=== PATIENT | female | born 2000 | race Caucasian/White ===

== ENCOUNTER 2023-06-30 12:26 | Emergency (ER) | payer OTHER, SELFPAY ==
[2023-06-30 12:28] VITALS: BP 147/93
[2023-06-30] MEDS: PROTONIX IV 80 MG IV (14:45)
--- NOTE | 2023-06-30 14:56 | ED.GENMED ---
History of Present Illness
General
Chief Complaint: Vomiting Blood
Time Seen by Provider: 06/30/23 14:21
Travel History
Have you had any contact with someone who has COVID-19?: No
Do you have any symptoms of coronavirus? Fever > 100 degrees, chills, cough, shortness of breath, sore throat, loss of taste or smell, muscle aches, or headache?: No
History of Present Illness
History of Present Illness:
23-year-old female with history of bipolar disorder presents to the emergency department for evaluation of 3 episodes of blood-tinged vomitus over the past week. She also noted darker than normal stools this morning. Denies any melanotic stools.
Does report upper abdominal pain. Does not take NSAIDs routinely but does use tobacco products, denies alcohol use.
Past History
Past History
ED Past Medical History: Psychiatric
Review of Systems
Review of Systems
Allergies reviewed?: Yes
All Other Systems: ROS reviewed and negative except as documented in HPI and ROS
Phy Exam
Physical Exam
Physical Exam:
GEN: Well appearing, NAD, WDWN
Eyes: PERRLA, EOMs intact, no scleral icterus
HENT: NCAT, oral mucosa moist
Lungs: CTAB, no wheezes, rales, rhonchi, normal chest wall excursion
Cardiac: RRR, no M/R/G, no peripheral edema. Radial pulses 2+ bilat
Abdomen: S, NT, ND, NABS, no masses or hepatosplenomegaly
Rectum: Minimal stool in the rectal vault, heme-negative
Neuro: AO x 3
MSK: No gross deformity or ecchymosis.
Skin: No rashes, petechiae. Normal color, no pallor or jaundice.
Psych: Calm, cooperative, proper hygiene
Course
Orders/Labs/Results
Orders:
Orders
06/30/23 14:32
Pantoprazole [Protonix IV] 80 mg IV NOW STA
06/30/23 14:47
Complete Blood Count/With Diff Urgent
Comprehensive Metabolic Panel Urgent
Prothrombin Time Urgent
Abnormal Lab Results
06/30/23
14:47
Plt Count 428 H 10^3/uL
(130-400)
Absolute Monos (auto) 0.8 H 10^3/uL
(0.1-0.6)
Chloride 108 H mmol/L
(98-107)
06/30/23 14:47
06/30/23 14:47
Vital Signs
Initial and Last Documented VS:
Initial Vital Signs
Temp Pulse Resp BP Pulse Ox
98.1 F 87 16 147/93 99
06/30/23 12:28 06/30/23 12:28 06/30/23 12:28 06/30/23 12:28 06/30/23 12:28
Last Documented Vital Signs
Temp Pulse Resp BP Pulse Ox
98.1 F 87 16 147/93 99
06/30/23 12:28 06/30/23 12:28 06/30/23 12:28 06/30/23 12:28 06/30/23 12:28
MDM/Problems Addressed
MDM/Problems Addressed:
Patient does not have strongly melanotic stool. Her presentation is most consistent with acute gastritis/peptic ulcer disease. Her hemoglobin is stable and her vital signs are unremarkable. Patient was given IV Protonix in the emergency
department will discharge on high-dose Protonix with Carafate, outpatient GI follow-up advised. ED return parameters to include worsening hematemesis or melanotic stools discussed with the patient
*Critical Care Note
Total Time (30-74mins, 75-104mins- exclusive of procedures): Not Applicable
ED Attending Note
-
Portions of this chart may have been created with voice recognition software.� Occasional wrong word or��sound alike� substitutions may have occurred due to the inherent limitations of voice recognition software.
Discharge Plan
Departure
Patient Disposition: Home (Routine Discharge)
Date of Disposition: 06/30/23
Time of Disposition: 15:40
Patient with high blood pressure during this ER visit?: No
Discharge Problem:
Gastritis
Instructions: Gastritis (DC)
Prescriptions:
New
pantoprazole [Protonix] 40 mg tablet,delayed release (DR/EC)
40 mg PO BID 14 Days Qty: 28 0RF
sucralfate [Carafate] 1 gram tablet
1 g PO ACHS Qty: 60 0RF
No Action
omeprazole 10 mg Capsule,Delayed Release(Dr/Ec)
5 mg PO DAILY
benztropine [Cogentin] 1 mg Tablet
1 mg PO HS
topiramate [Topamax] 100 mg Tablet
100 mg PO HS
escitalopram oxalate [Lexapro] 10 mg Tablet
10 mg PO HS
aripiprazole [Abilify] 30 mg Tablet
30 mg PO HS
diclofenac sodium 75 mg tablet,delayed release (DR/EC)
75 mg PO BID Qty: 10 0RF
cyclobenzaprine 5 mg tablet
5 mg PO BID PRN (Reason: muscle spasm) Qty: 10 0RF
Referrals:
Zahida Fields MD [Active] - Call in 1-3 days for appt
Interventions
Interventions:
*Risk Screen - Suicide Last Done: 06/30/23 12:28
*General Assessment Last Done: 06/30/23 12:28
*Neglect/Abuse Screening Last Done: 06/30/23 12:28
ED- Fall Risk Assessment Last Done: 06/30/23 15:51
*ED COVID-19 Vaccine History Last Done: 06/30/23 15:51
*Nursing Disposition Last Done: 06/30/23 15:51
NE-Vsenau-Sctvnzavtz Assessment Last Done: 06/30/23 14:50
ED- Cardiac Assessment Last Done: 06/30/23 14:50
ED- Pulmonary Assessment Last Done: 06/30/23 14:50
Discharge Date and Time
Discharge Date/Time: 06/30/23 15:52
[2023-06-30 15:02] LABS: % Basophils 0.5 % (0-2); % Eosinophils 1.5 % (0-6); % Immature Granulocytes 0.2 % (0-0.5); % Lymphocytes 32.8 % (20.5-51.1); % Monocytes 7.8 % (1.7-9.3); % Neutrophils 57.2 % (42.2-75.2); Absolute Basophils 0.1 10^3/uL (0-0.2); Absolute Eosinophils 0.2 10^3/uL (0-0.7); Absolute Lymphocytes 3.2 10^3/uL (1.2-3.4); Absolute Monocytes 0.8 10^3/uL (0.1-0.6); Absolute Neutrophils 5.7 10^3/uL (1.4-6.5); Hematocrit 43.6 % (37.0-47.0); Hemoglobin 15.3 g/dL (12.0-16.0); Mean Corp Hgb Conc. 35.1 g/dL (33.0-37.0); Mean Corpuscular Hgb 30.8 pg (27.0-31.0); Mean Corpuscular Volume 87.9 fL (81.0-99.0); Mean Platelet Volume 8.5 fL (7.4-10.4); Nucleated Red Blood Cells % 0 %; Platelet Count 428 10^3/uL (130-400); Red Blood Cell Count 4.96 10^6/uL (4.20-5.40); Red Cell Dist. Width 12.4 % (11.5-14.5); White Blood Cell Count 9.9 10^3/uL (4.8-10.8)
[2023-06-30 15:19] LABS: INR 1.02; PT 13.2 Sec (11.4-14.6)
[2023-06-30 15:33] LABS: ALT (SGPT) 32 U/L (0-35); AST (SGOT) 32 U/L (14-36); Albumin 4.2 g/dl (3.5-5.0); Alkaline Phosphatase 108 U/L (38-126); Blood Urea Nitrogen 11 mg/dl (7-17); Calcium 9.5 mg/dl (8.4-10.2); Carbon Dioxide 24 mmol/L (22-30); Chloride 108 mmol/L (98-107); Glucose 88 mg/dl (70-99); Sodium 137 mmol/L (135-145); Total Bilirubin 0.6 mg/dl (0.2-1.3); Total Protein 7.3 g/dl (6.3-8.2); eGFR > 60.00
== END 2023-06-30 15:52 | disposition home or self-care (01) ==
LOC: EMR 12:26
PROVIDERS: Physician Assistant; EMERGENCY PHYSICIAN Emergency Medicine
DX: K29.70 Gastritis, unspecified, without bleeding (principal)
CPT/HCPCS: 99284; 96374; 80053; 85025; 85610

== ENCOUNTER 2023-09-07 19:14 | Emergency (ER) | payer OTHER, SELFPAY ==
[2023-09-07 19:21] VITALS: BP 164/93
[2023-09-07 20:19] VITALS: BMI 40.4
[2023-09-07 21:13] LABS: % Basophils 0.4 % (0-2); % Eosinophils 2.1 % (0-6); % Immature Granulocytes 0.2 % (0-0.5); % Lymphocytes 35.5 % (20.5-51.1); % Monocytes 8.9 % (1.7-9.3); % Neutrophils 52.9 % (42.2-75.2); Absolute Eosinophils 0.2 10^3/uL (0-0.7); Absolute Lymphocytes 3.3 10^3/uL (1.2-3.4); Absolute Monocytes 0.8 10^3/uL (0.1-0.6); Absolute Neutrophils 4.9 10^3/uL (1.4-6.5); Hematocrit 46.9 % (37.0-47.0); Hemoglobin 15.7 g/dL (12.0-16.0); Mean Corp Hgb Conc. 33.5 g/dL (33.0-37.0); Mean Corpuscular Hgb 30.6 pg (27.0-31.0); Mean Corpuscular Volume 91.4 fL (81.0-99.0); Mean Platelet Volume 8.7 fL (7.4-10.4); Nucleated Red Blood Cells % 0 %; Platelet Count 379 10^3/uL (130-400); Red Blood Cell Count 5.13 10^6/uL (4.20-5.40); Red Cell Dist. Width 12.8 % (11.5-14.5); White Blood Cell Count 9.2 10^3/uL (4.8-10.8)
[2023-09-07 21:26] LABS: HCG, Serum Qualitative Screen Negative
[2023-09-07 21:30] LABS: ALT (SGPT) 26 U/L (0-35); AST (SGOT) 23 U/L (14-36); Albumin 4.5 g/dl (3.5-5.0); Alkaline Phosphatase 82 U/L (38-126); Blood Urea Nitrogen 17 mg/dl (7-17); Calcium 9.9 mg/dl (8.4-10.2); Carbon Dioxide 21 mmol/L (22-30); Chloride 105 mmol/L (98-107); Estimated Creatinine Clearance > 125 ml/min; Glucose 98 mg/dl (70-99); Sodium 137 mmol/L (135-145); Total Bilirubin 0.4 mg/dl (0.2-1.3); Total Protein 7.7 g/dl (6.3-8.2); eGFR > 60.00
--- NOTE | 2023-09-07 22:00 | ED.GENMED ---
History of Present Illness
General
Chief Complaint: Numbness
Source: patient
Exam Limitations: none
Time Seen by Provider: 09/07/23 20:37
Nursing documentation reviewed up to this point in time: agreed with
Travel History
Have you had any contact with someone who has COVID-19?: No
Do you have any symptoms of coronavirus? Fever > 100 degrees, chills, cough, shortness of breath, sore throat, loss of taste or smell, muscle aches, or headache?: No
History of Present Illness
History of Present Illness:
23-year-old female with a past medical history of autism, migraines who presents to the emergency department for evaluation of intermittent left facial numbness, upper lip twitching and associated headaches. Patient reports that this has been
ongoing for the past month and a half. She says that she will have episodes where she has a headache associated with some left-sided paresthesias/numbness in the face and will occasionally get associated twitching of the left upper lip. She says
that today she had an episode that was a little bit more intense which prompted her to finally seek care in the emergency room. She says she has seen her primary doctor for this and was referred to see a neurologist but could not get an appointment
until 6 months from now. Currently she says she still has some very slight residual paresthesia in the left face but rest of her symptoms have resolved. She denies any associated nausea or vomiting. No neck pain or stiffness. Denies focal
weakness or numbness in her extremities. No speech issues. No vision changes. She denies any trauma to the head. She denies any other complaints. She is on multiple medications for migraine prevention and says that headaches are consistent with
prior migraines but facial paresthesias and lip twitching are new symptoms.
Past History
Past History
ED Past Medical History: Psychiatric
Review of Systems
Review of Systems
All Other Systems: ROS reviewed and negative except as documented in HPI and ROS
Constitutional: Denies fever or chills
EENT: Denies sore throat or runny nose
Respiratory: Denies cough or trouble breathing
Cardiac: Denies chest pain or palpitations
ABD/GI: Denies abdominal pain, nausea or vomiting
: Denies flank pain
Musculoskeletal: Denies neck pain or back pain
Neurological: Reports headache and numbness (Left facial numbness); Denies dizzy or weakness
Phy Exam
Physical Exam
Physical Exam:
General: Awake, alert, oriented x3; no acute distress
Head: Normocephalic, atraumatic
Eyes: Conjunctiva normal, EOMI, pupils equal round and reactive to light bilaterally
Throat: Airway intact, handling secretions
Neck: Trachea midline, supple without meningismus
Lungs: Clear to auscultation bilaterally, no wheezing, rales, rhonchi
Heart: Regular rate and rhythm, no murmurs, gallops, or rubs
Abd: Soft, non distended, nontender
Neuro: Cranial nerves intact 2 through 12, speech fluid without dysarthria or aphasia, no limb ataxia, motor and sensory function intact and symmetric upper and lower extremities
Skin: no rash
Extremities: No edema in extremities, equal pulses in all extremities
Scores
Heart Failure Risk
Heart Failure Risk Score: Not Applicable
Heart Score for Chest Pain Patients
STEMI patient?: Not applicable
Withdrawal Assessment of Alcohol
Withdrawal Assessment Completed?: Not applicable
Course
Orders/Labs/Results
Orders:
Orders
09/07/23 20:38
CT Head W/o Iv Contrast Urgent
Comment:
Reason For Exam: left facial numbness
09/07/23 20:48
Test Result ONCE
09/07/23 21:06
CBC/With Diff [Complete Blood Count/With Diff] Urgent
CMP [Comprehensive Metabolic Panel] Urgent
HCG, Serum Qualitative Screen Urgent
Abnormal Lab Results
09/07/23
21:06
Absolute Monos (auto) 0.8 H 10^3/uL
(0.1-0.6)
Carbon Dioxide 21 L mmol/L
(22-30)
09/07/23 21:06
09/07/23 21:06
Vital Signs
Initial and Last Documented VS:
Initial Vital Signs
Temp Pulse Resp BP Pulse Ox
36.8 C 90 17 164/93 98
09/07/23 19:21 09/07/23 19:21 09/07/23 19:21 09/07/23 19:21 09/07/23 19:21
Last Documented Vital Signs
Temp Pulse Resp BP Pulse Ox
36.8 C 90 17 164/93 98
09/07/23 19:21 09/07/23 19:21 09/07/23 19:21 09/07/23 19:21 09/07/23 19:21
MDM/Problems Addressed
Differential Diagnosis Includes:
Complex migraine, brain mass, stroke considered less likely
MDM/Problems Addressed:
23-year-old female presents for evaluation of intermittent headaches associated with left facial numbness and left upper lip twitching over the past month and a half. Somewhat more intense episode today and could not get neurology follow-up for 6
months so she came to the emergency room. Hypertensive in triage but blood pressure improved on my assessment. Physical exam as above. Plan to place an IV check basic labs, hCG and will send for CT head. Will monitor closely reassess after the
above.
Initial labs reviewed: CBC and CMP unremarkable, hCG negative. Awaiting results of CT. On clinical reassessment patient feeling better, no symptoms. Her history seems most consistent with complex migraine. I did discuss the case with neurology
who agrees likely migraine; if CT negative recommended adding magnesium oxide and riboflavin to her current regimen to prevent symptoms and they will try and expedite follow-up.
CT head negative. Patient remains well-appearing with reassuring exam, asymptomatic on reassessment. Discussed neurology recommendations with patient as well as her mother on the phone. Neurology will help facilitate outpatient follow-up.
Patient and mother feel very comfortable with this plan. Spoke about return precautions all questions answered.
Chronic conditions affecting care:
Migraines
Acute Exacerbation and/or Progression of Chronic Illness: HTN
*Radiology
Radiology exam reviewed: radiology read reviewed
*Pulse Oximetry
Patient hypoxic: no
*Critical Care Note
Total Time (30-74mins, 75-104mins- exclusive of procedures): Not Applicable
Data Reviewed
Review of Other/Old Records Reveals: Labs and Records
Source: patient and records
Patient Management
Discussion with other providers: Clerical Clerk (Discussed with neurology)
ED Attending Note
-
Portions of this chart may have been created with voice recognition software.� Occasional wrong word or��sound alike� substitutions may have occurred due to the inherent limitations of voice recognition software.
Discharge Plan
Departure
Patient with high blood pressure during this ER visit?: Yes
Discharge Problem:
Migraine, Facial paresthesia
Instructions: Paresthesia (DC), Migraines in adults
Prescriptions:
New
magnesium oxide 400 mg magnesium tablet
400 mg PO DAILY Qty: 30 0RF
riboflavin (vitamin B2) 400 mg tablet
400 mg PO DAILY Qty: 30 0RF
No Action
omeprazole 10 mg Capsule,Delayed Release(Dr/Ec)
5 mg PO DAILY
benztropine [Cogentin] 1 mg Tablet
1 mg PO HS
topiramate [Topamax] 100 mg Tablet
100 mg PO HS
escitalopram oxalate [Lexapro] 10 mg Tablet
10 mg PO HS
aripiprazole [Abilify] 30 mg Tablet
30 mg PO HS
diclofenac sodium 75 mg tablet,delayed release (DR/EC)
75 mg PO BID Qty: 10 0RF
cyclobenzaprine 5 mg tablet
5 mg PO BID PRN (Reason: muscle spasm) Qty: 10 0RF
pantoprazole [Protonix] 40 mg tablet,delayed release (DR/EC)
40 mg PO BID 14 Days Qty: 28 0RF
sucralfate [Carafate] 1 gram tablet
1 g PO ACHS Qty: 60 0RF
Referrals:
Cas Santos MD [Active] - Call in 1-3 days for appt
Jareth Dow MD [Family Provider] -
Activity Restrictions/Additional Instructions:
Thank you for visiting the Emergency Department at [facility].
1. Please schedule a follow up appointment as directed. Call first thing tomorrow morning to make an appointment.
2. If indicated, please take your medications as instructed and indicated on discharge paperwork.
3. If any of your symptoms do not improve, or persist, or become more severe within 6-12 hours, please return to the emergency department for further care.
4. Please return to the emergency department if you develop a headache, neck pain/stiffness, fever greater than 100.4F, chest pain, shortness of breath, persistent nausea, vomiting, slurred speech, difficulty walking, numbness/tingling, weakness,
signs of infection or any other symptoms that are worrisome to you.
Please call [phone] if you have any questions.
Interventions
Interventions:
*Risk Screen - Suicide Last Done: 09/07/23 19:21
*General Assessment Last Done: 09/07/23 19:21
*Neglect/Abuse Screening Last Done: 09/07/23 19:21
*ED COVID-19 Vaccine History Last Done: 09/07/23 19:21
ED- Neurological Assessment Last Done: 09/07/23 20:19
Discharge Date and Time
Print Language: IRANIAN
[2023-09-07 22:41] VITALS: BP 111/71
== END 2023-09-07 22:51 | disposition home or self-care (01) ==
LOC: EMR 19:14
PROVIDERS: Emergency Medicine; EMERGENCY PHYSICIAN Emergency Medicine; FAMILY PHYSICIAN Family Medicine
DX: R20.2 Paresthesia of skin (principal); G43.909 Migraine, unspecified, not intractable, without status migrainosus; I10 Essential (primary) hypertension; F84.0 Autistic disorder
CPT/HCPCS: 99284; 70450; 80053; 84703; 85025

== ENCOUNTER → 2023-11-08 19:50 | Outpatient (REF) | payer OTHER, SELFPAY | LOC: MRI 19:50 | PROVIDERS: ATTENDING PHYSICIAN Psychiatry & Neurology Neurology; FAMILY PHYSICIAN Family Medicine | DX: G43.109 Migraine with aura, not intractable, without status migrainosus (principal); H93.12 Tinnitus, left ear | CPT/HCPCS: 70553; A9575 ==

== ENCOUNTER 2024-06-07 09:15 | Emergency (ER) | payer OTHER, SELFPAY ==
[2024-06-07 09:18] VITALS: BP 155/88
[2024-06-07 09:32] VITALS: BP 144/91
[2024-06-07 09:33] VITALS: BMI 44.3
--- NOTE | 2024-06-07 09:34 | ED.GENMED ---
History of Present Illness
General
Chief Complaint: Esophageal Problem
Source: patient
Exam Limitations: none
Time Seen by Provider: 06/07/24 09:24
History of Present Illness
History of Present Illness:
See MDM
Past History
Past History
ED Past Medical History: Psychiatric
ED Past Surgical History: None
Social History
Tobacco: Non-smoker
Alcohol: None
Phy Exam
Physical Exam
Physical Exam:
See MDM
Course
Orders/Labs/Results
Orders:
Orders
06/07/24 09:30
0.9% Sodium Chloride 1000 ml [Nss] 1,000 ml IV BOLUS
Famotidine [Pepcid] 20 mg IV NOW STA
Ondansetron Injectable [Zofran] 4 mg IV NOW STA
Test Result ONCE
06/07/24 09:32
Famotidine [Pepcid] 20 mg .ROUTE .STK-MED ONE
Ondansetron Injectable [Zofran] 4 mg .ROUTE .STK-MED ONE
06/07/24 09:34
CR Chest - 2 Views Urgent
Comment:
Reason For Exam: Chest pain
06/07/24 09:39
Complete Blood Count/With Diff Urgent
Comprehensive Metabolic Panel Urgent
HCG, Serum Qualitative Screen Urgent
Abnormal Lab Results
06/07/24
09:39
Plt Count 431 H 10^3/uL
(130-400)
Absolute Monos (auto) 0.7 H 10^3/uL
(0.1-0.6)
06/07/24 09:39
06/07/24 09:39
Vital Signs
Initial and Last Documented VS:
Initial Vital Signs
Temp Pulse Resp BP Pulse Ox
98.1 F 86 16 155/88 98
06/07/24 09:18 06/07/24 09:18 06/07/24 09:18 06/07/24 09:18 06/07/24 09:18
Last Documented Vital Signs
Temp Pulse Resp BP Pulse Ox
98.1 F 76 25 133/87 93
06/07/24 09:18 06/07/24 10:45 06/07/24 10:45 06/07/24 10:00 06/07/24 10:45
MDM/Problems Addressed
Differential Diagnosis Includes:
HPI and MDM Narrative:
24-year-old female presenting for evaluation of upper GI bleeding. Patient has developed nausea and vomiting over the past few days. She is now noticing blood in her vomit. This is associated with mild diarrhea. She went to her PCP and was sent
in for evaluation. On exam, she is extremely well-appearing nontoxic. She does complain of mild chest discomfort. Given the concern for Nalini-Ford tear, will obtain chest x-ray to rule out any evidence of pneumomediastinum. Will provide IV
fluids and IV Zofran. Will start IV Pepcid.
Physical exam
General: Well appearing and non-toxic
HEENT: protecting airway. Dry mucous membranes
Neck: appears supple
CV: No evidence of cyanosis. Regular rate and rhythm
Resp: No accessory muscle use. No crepitus palpated to chest wall
Abd: Non-distended
Extremities: No deformities
Neuro: alert
Psych: Normal affect
Skin: Intact
Problems Addressed including Acute and Chronic Conditions affecting care:
1. Upper GI bleeding
Acuity: acute
Prognosis: stable
Details: Likely Nalini-Ford tear. No clinical evidence of Boerhaave syndrome. Will obtain chest x-ray and provide IV fluids, IV Zofran and Pepcid
Updates
On reassessment, patient feeling much better. No vomiting in the emergency department. Chest x-ray clear
Differential Diagnosis (but not limited to): Mildly Ford tear, Boerhaave syndrome, upper GI bleeding, gastritis
Testing considered: CT chest
Drug therapy (if applicable): OTC meds, please see d/c instruction regarding Rx drugs
Amount and/or Complexity of Data Reviewed
Clinical info obtained from: Patient
External data reviewed: N/A
Labs I independently reviewed (but not limited to): Hemoglobin stable
Radiology: X-ray independently reviewed: No evidence of left pleural effusion, pneumomediastinum or pneumothorax
Pulse Ox: not hypoxic
EKG independently reviewed: N/A
Vp Genetic: N/A
Critical Care: N/A
Risk of Complication:
Social Determinants of health: Good social support
Discussed with other providers: N/A
Escalation of Care includes Admit/Obs: After being observed in the Emergency Department, pt stable for discharge.
Occasional wrong word or 'sound a like' substitutions may have occurred due to the inherent limitations of voice recognition software. Read the chart carefully and recognize, using context, where substitutions have occurred.
*Critical Care Note
Total Time (30-74mins, 75-104mins- exclusive of procedures): Not Applicable
ED Attending Note
-
Portions of this chart may have been created with voice recognition software.� Occasional wrong word or��sound alike� substitutions may have occurred due to the inherent limitations of voice recognition software.
Discharge Plan
Departure
Patient Disposition: Home (Routine Discharge)
Date of Disposition: 06/07/24
Time of Disposition: 11:05
Patient with high blood pressure during this ER visit?: No
Discharge Problem:
Nalini-Ford tear
Prescriptions:
New
famotidine [Pepcid] 20 mg tablet
20 mg PO BID Qty: 10 0RF
ondansetron 4 mg Tablet,Disintegrating
4 mg PO BIDPRN PRN (Reason: nausea/vomiting) Qty: 10 0RF
No Action
omeprazole 10 mg Capsule,Delayed Release(Dr/Ec)
5 mg PO DAILY
benztropine [Cogentin] 1 mg Tablet
1 mg PO HS
topiramate [Topamax] 100 mg Tablet
100 mg PO HS
escitalopram oxalate [Lexapro] 10 mg Tablet
10 mg PO HS
aripiprazole [Abilify] 30 mg Tablet
30 mg PO HS
diclofenac sodium 75 mg tablet,delayed release (DR/EC)
75 mg PO BID Qty: 10 0RF
cyclobenzaprine 5 mg tablet
5 mg PO BID PRN (Reason: muscle spasm) Qty: 10 0RF
pantoprazole [Protonix] 40 mg tablet,delayed release (DR/EC)
40 mg PO BID 14 Days Qty: 28 0RF
sucralfate [Carafate] 1 gram tablet
1 g PO ACHS Qty: 60 0RF
magnesium oxide 400 mg magnesium tablet
400 mg PO DAILY Qty: 30 0RF
riboflavin (vitamin B2) 400 mg tablet
400 mg PO DAILY Qty: 30 0RF
Referrals:
Basil Archer MD [Active] -
Jareth Dow MD [Family Provider] -
Activity Restrictions/Additional Instructions:
Please return for any worsening symptoms.
You may return at any time if you have further concerns.
Please follow up with your doctor at the first available appointment, preferably this week.
If symptoms persist, please follow-up with gastroenterology as you may require endoscopy.
Thank you for choosing [facility].
Interventions
Interventions:
*Risk Screen - Suicide Last Done: 06/07/24 09:18
*General Assessment Last Done: 06/07/24 09:18
*Neglect/Abuse Screening Last Done: 06/07/24 09:18
*ED COVID-19 Vaccine History Last Done: 06/07/24 09:33
AE-Ysoftf-Jkntpwdect Assessment Last Done: 06/07/24 09:33
ED-EENT Assessment Last Done: 06/07/24 09:33
Discharge Date and Time
Print Language: KHMER
[2024-06-07] MEDS: ZOFRAN 4 MG IV (09:35)
[2024-06-07] MEDS: PEPCID 20 MG IV (09:36)
[2024-06-07] MEDS: NSS 1000 IV (09:36)
[2024-06-07 10:00] VITALS: BP 133/87
[2024-06-07 10:01] LABS: % Basophils 0.5 % (0-2); % Eosinophils 2.3 % (0-6); % Immature Granulocytes 0.1 % (0-0.5); % Monocytes 9.1 % (1.7-9.3); Absolute Eosinophils 0.2 10^3/uL (0-0.7); Absolute Lymphocytes 2.4 10^3/uL (1.2-3.4); Absolute Monocytes 0.7 10^3/uL (0.1-0.6); Absolute Neutrophils 4.8 10^3/uL (1.4-6.5); Hematocrit 44.4 % (37.0-47.0); Hemoglobin 15.2 g/dL (12.0-16.0); Mean Corp Hgb Conc. 34.2 g/dL (33.0-37.0); Mean Corpuscular Hgb 30.5 pg (27.0-31.0); Mean Corpuscular Volume 89.2 fL (81.0-99.0); Mean Platelet Volume 8.8 fL (7.4-10.4); Nucleated Red Blood Cells % 0 %; Platelet Count 431 10^3/uL (130-400); Red Blood Cell Count 4.98 10^6/uL (4.20-5.40); Red Cell Dist. Width 12.5 % (11.5-14.5); White Blood Cell Count 8.1 10^3/uL (4.8-10.8)
[2024-06-07 10:10] LABS: HCG, Serum Qualitative Screen Negative
[2024-06-07 10:14] LABS: ALT (SGPT) 29 U/L (0-35); AST (SGOT) 25 U/L (14-36); Albumin 4.5 g/dl (3.5-5.0); Alkaline Phosphatase 83 U/L (38-126); Blood Urea Nitrogen 10 mg/dl (7-17); Calcium 9.4 mg/dl (8.4-10.2); Carbon Dioxide 25 mmol/L (22-30); Chloride 104 mmol/L (98-107); Estimated Creatinine Clearance > 125 ml/min; Glucose 87 mg/dl (70-99); Potassium 4.4 mmol/L (3.5-5.1); Sodium 140 mmol/L (135-145); Total Bilirubin 0.6 mg/dl (0.2-1.3); Total Protein 7.6 g/dl (6.3-8.2); eGFR > 60.00
== END 2024-06-07 11:15 | disposition home or self-care (01) ==
LOC: EMR 09:15
PROVIDERS: EMERGENCY PHYSICIAN Student in an Organized Health Care Education/Training Program; FAMILY PHYSICIAN Family Medicine
DX: K22.6 Gastro-esophageal laceration-hemorrhage syndrome (principal); R07.89 Other chest pain
CPT/HCPCS: 96374; 96375; 96361; 99284; 71046; 80053; 84703; 85025

== ENCOUNTER → 2024-07-10 06:17 | Day surgery (SDC) | payer OTHER, SELFPAY | LOC: GI 06:17 | PROVIDERS: ATTENDING PHYSICIAN Internal Medicine Gastroenterology | DX: K29.70 Gastritis, unspecified, without bleeding (principal); K21.00 Gastro-esophageal reflux disease with esophagitis, without bleeding; K21.9 Gastro-esophageal reflux disease without esophagitis; K92.0 Hematemesis | CPT/HCPCS: 43239; 88305; 88342 ==